=== PATIENT | male | born 1950 | race Caucasian/White ===

== ENCOUNTER → 2020-02-09 | Outpatient (CLI) | payer MEDICARE ==
[~2020-02-09] MED LIST: ASCO1500 PO; CHOL10003 PO; DIPH25CA61 PO; FLAX1OIL PO; GLUC1TAB55 PO; IMMUN GLOB INJ; ISAGENIX PO; TAMS-11 PO; TURM538C PO; [UNRECOGNIZED DRUG - OTHER] PO; [UNRECOGNIZED DRUG - OTHER] PO
[2020-02-09 14:14] LABS: MEAN CORPUSCULAR HEMOGLOBIN 36.4 pg (27.5-34.5); MEAN CORPUSCULAR HGB CONC 33.6 g/dL (33.2-36.2); MEAN CORPUSCULAR VOLUME 108.6 fL (81-97); MEAN PLATELET VOLUME 7.4 fL (7.4-10.4); PLATELET COUNT 122 x10^3/uL (130-400); RED BLOOD COUNT 3.95 x10^6/uL (4.38-5.82); RED CELL DISTRIBUTION WIDTH 14.8 % (9.4-14.8)
[2020-02-09 14:25] LABS: CALCIUM 8.8 mg/dL (8.5-10.1); CREATININE 0.85 mg/dL (0.7-1.3)
[2020-02-09 14:38] LABS: ANION GAP 4 mmol/L (5-15); CHLORIDE 110 mmol/L (98-107)
[2020-02-09 14:50] LABS: BASOPHILS % (AUTO) 0 % (0-1); EOSINOPHILS # (AUTO) 0.01 x10^3/uL (0-0.4); EOSINOPHILS % (AUTO) 0 % (1-7); LYMPHOCYTES # (AUTO) 2.21 x10^3/uL (1-3.4); LYMPHOCYTES % (AUTO) 67 % (22-44); MD SCAN; MONOCYTES # (AUTO) 0.26 x10^3/uL (0.2-0.8); MONOCYTES % (AUTO) 8 % (2-9); NEUTROPHILS # (AUTO) 0.83 x10^3/uL (1.8-6.8); NEUTROPHILS % (AUTO) 25 % (42-75)
== END | disposition home or self-care (01) ==
LOC: STAR 12:54
PROVIDERS: ATTEND Orthopaedic Surgery
DX: Z01.818 Encounter for other preprocedural examination (principal); M17.12 Unilateral primary osteoarthritis, left knee
CPT/HCPCS: 36415; 80048; 85025; 87081; 93005

== ENCOUNTER 2020-02-20 08:00 | Outpatient (CLI) | payer MEDICARE ==
[2020-02-24] MEDS ORDERED: MIDAZOLAM 1 MG/ML, 2ML ONE (09:41)
[2020-02-24] MEDS ORDERED: KETOROLAC 60 MG/2 ML ONE (09:56)
[2020-02-24] MEDS ORDERED: VANCOMYCIN 1,000 MG ONE ×2 (09:57→10:16)
[2020-02-24] MEDS ORDERED: ROPIvacaine/PF 0.2%, 20 ML ONE (09:57)
[2020-02-24] MEDS ORDERED: TRANEXAMIC ACID 100 MG/ML, 10ML ONE (09:57)
[2020-02-24] MEDS ORDERED: EPINEPHRINE 1 MG/ML, 1ML ONE (09:57)
[2020-02-24] MEDS ORDERED: SODIUM CHLORIDE 0.9% 0 ML ONE (09:57)
[2020-02-24] MEDS ORDERED: FENTANYL PF 250 MCG/5ML ONE (10:58)
[2020-02-24] MEDS ORDERED: FENTANYL PF 100 MCG/2ML ONE (12:17)
[2020-02-24] MEDS ORDERED: HYDROmorphone 2 MG/ML, 1ML ONE (13:08)
[2020-02-24] MEDS ORDERED: LABETALOL 5MG/ML, 20ML ONE (13:15)
[2020-02-24] MEDS ORDERED: MEPERIDINE/PF 25MG/ML,1ML ONE (13:23)
== END 2020-02-20 23:59 | disposition home or self-care (01) ==
LOC: OUT 08:00 → EDSTATUS 02-24 10:00
PROVIDERS: ATTEND Orthopaedic Surgery
DX: Z11.59 Encounter for screening for other viral diseases (principal)
CPT/HCPCS: 36415; 87635; J0171; J1885; J2250; J2795; J3010; J3370

== ENCOUNTER 2020-02-24 08:05 | Observation (INO) | payer MEDICARE ==
[~2020-02-24] VITALS: Ht 182.9 cm; Wt 110.0 kg
[2020-02-24] MEDS ORDERED: LACTATED RINGERS 1,000 ML IV SCH (08:57)
[2020-02-24 09:00] VITALS: BP 152/77
[2020-02-24] MEDS ORDERED: CHLORHEXIDINE 15 ML UDC MM ONE (09:00)
[2020-02-24] MEDS ORDERED: CHLORHEXIDINE 15 ML UDC ONE (09:06)
[2020-02-24] MEDS ORDERED: ONDANSETRON 2MG/ML, 2ML ONE (10:22)
[2020-02-24] MEDS ORDERED: CEFAZOLIN 1,000 MG ONE (10:22)
[2020-02-24] MEDS ORDERED: DEXAMETHASONE 4 MG/ML, 1ML ONE (10:22)
[2020-02-24] MEDS ORDERED: ROCURONIUM 10 MG/ML,10ML ONE (10:22)
[2020-02-24] MEDS ORDERED: SUCCINYLCHOLINE 20 MG/ML, 10ML ONE (10:22)
[2020-02-24] MEDS ORDERED: PROPOFOL 10 MG/ML, 20ML ONE (10:22)
[2020-02-24] MEDS ORDERED: ONDANSETRON 2MG/ML, 2ML IVPush PRN ×2 (11:30→12:30)
[2020-02-24] MEDS ORDERED: PROMETHAZINE 25 MG/ML, 1ML IV PRN (11:30)
[2020-02-24] MEDS ORDERED: DIAZEPAM 5 MG/ML, 2ML IV PRN ×2 (11:30)
[2020-02-24] MEDS ORDERED: METOCLOPRAMIDE 5 MG/ML, 2ML IV PRN (11:30)
[2020-02-24] MEDS ORDERED: ALBUTEROL SULFATE 2.5 MG/3 ML NPPB PRN (11:30)
[2020-02-24] MEDS ORDERED: KETOROLAC 30 MG/1 ML IV PRN (11:30)
[2020-02-24] MEDS ORDERED: OXYcodone 5 MG/5 ML ORAL.SOL UDC PO PRN (11:30)
[2020-02-24] MEDS ORDERED: hydrALAzine 20 MG/ML, 1ML IV PRN (11:30)
[2020-02-24] MEDS ORDERED: MEPERIDINE/PF 25MG/0.5ML IVPush PRN (11:30)
[2020-02-24] MEDS: D5%-0.45% NACL 1,000 ML IV SCH ×2 (12:12→14:51)
[2020-02-24] MEDS: FENTANYL PF 100 MCG/2ML IV PRN ×5 (12:18→13:04)
[2020-02-24] MEDS ORDERED: ALUMINUM/MAG/SIMETHICONE 30 ML UDC PO PRN (12:30)
[2020-02-24] MEDS: KETOROLAC 30 MG/1 ML IV SCH ×2 (12:30→21:18)
[2020-02-24] MEDS ORDERED: ZOLPIDEM 5MG TABLET PO PRN (12:30)
[2020-02-24] MEDS: ACETAMINOPHEN 500 MG TABLET PO SCH ×2 (12:30→21:18)
[2020-02-24] MEDS ORDERED: ONDANSETRON 4 MG TABLET PO PRN (12:30)
[2020-02-24] MEDS ORDERED: MORPHINE SULFATE 4 MG/ML, 1ML IVPush PRN (12:30)
[2020-02-24] MEDS ORDERED: BISACODYL 10 MG SUPP PR PRN (12:30)
[2020-02-24] MEDS ORDERED: PROMETHAZINE 25 MG/ML, 1ML IM PRN (12:30)
[2020-02-24] MEDS ORDERED: CEFAZOLIN PMX 1GM/50ML 50 ML IVPB SCH (12:30)
[2020-02-24] MEDS ORDERED: OXYcodone IR 5MG TABLET PO PRN (12:30)
[2020-02-24] MEDS ORDERED: MAGNESIUM HYDROXIDE 8%, 30ML UDC PO PRN (12:30)
[2020-02-24] MEDS ORDERED: OXYcodone 5 MG/5 ML ORAL.SOL UDC ONE (12:37)
[2020-02-24] MEDS ORDERED: TRANEXAMIC ACID 1,000 MG in SODIUM CHLORIDE 0.9% 100 ML IVPB ONE (12:41)
[2020-02-24] MEDS ORDERED: FENTANYL PF 100 MCG/2ML ONE (12:42)
[2020-02-24] MEDS: HYDROmorphone 1 MG/ML, 1ML INJ IV PRN ×3 (13:10→13:41)
[2020-02-24] MEDS: LABETALOL 5MG/ML, 20ML IV PRN ×2 (13:20→13:55)
[2020-02-24] MEDS ORDERED: TRANEXAMIC ACID 100 MG/ML, 10ML ONE (14:37)
[2020-02-24] MEDS ORDERED: SODIUM CHLORIDE 0.9% 50 ML ONE (14:37)
[2020-02-24] MEDS ORDERED: EPINEPHRINE 1 MG/ML, 1ML ONE (14:37)
[2020-02-24] MEDS ORDERED: ROPIvacaine/PF 0.2%, 20 ML ONE (14:37)
[2020-02-24] MEDS ORDERED: KETOROLAC 60 MG/2 ML ONE (14:37)
[2020-02-24] MEDS ORDERED: VANCOMYCIN 1,000 MG ONE (14:37)
[2020-02-24] MEDS: CEFAZOLIN PMX 1GM/50ML 50 ML IVPB SCH (18:07)
[2020-02-24 19:14] VITALS: BP 126/73
[2020-02-24] MEDS: DOCUSATE 100 MG CAPSULE PO SCH (21:17)
[2020-02-25 00:44] VITALS: BP 148/68
[2020-02-25] MEDS: D5%-0.45% NACL 1,000 ML IV SCH (01:06)
[2020-02-25] MEDS: OXYcodone IR 5MG TABLET PO PRN ×4 (01:41→12:09)
[2020-02-25] MEDS: CEFAZOLIN PMX 1GM/50ML 50 ML IVPB SCH (02:21)
[2020-02-25 03:54] VITALS: BP 118/66
[2020-02-25] MEDS: ACETAMINOPHEN 500 MG TABLET PO SCH ×2 (05:18→12:10)
[2020-02-25] MEDS: KETOROLAC 30 MG/1 ML IV SCH (05:18)
[2020-02-25] MEDS ORDERED: ISAGENIX PO SCH (06:00)
[2020-02-25 08:00] VITALS: BP 135/73
[2020-02-25 08:08] VITALS: BP 145/68
[2020-02-25] MEDS: DOCUSATE 100 MG CAPSULE PO SCH (08:11)
[2020-02-25] MEDS ORDERED: TAMSULOSIN 0.4 MG CAP.ER.24H PO SCH ×2 (09:00)
[2020-02-25] MEDS ORDERED: ASCORBIC ACID 500 MG TABLET PO SCH (09:00)
[2020-02-25] MEDS ORDERED: DIPHENHYDRAMINE 25 MG CAPSULE PO SCH ×2 (09:00)
[2020-02-25] MEDS ORDERED: [UNRECOGNIZED DRUG - REMARK] PO SCH (09:00)
[2020-02-25] MEDS ORDERED: CHOLECALCIFEROL 5,000u TAB PO SCH ×2 (09:00)
[2020-02-25] MEDS ORDERED: TURMERIC PO SCH (09:00)
[2020-02-25] MEDS ORDERED: MULTIVITAMINS/MINERALS TABLET PO SCH (09:00)
[2020-02-25] MEDS ORDERED: OSTEO BI FLEX PO SCH (09:00)
[2020-02-25] MEDS ORDERED: [UNRECOGNIZED DRUG - OTHER] PO SCH (09:00)
[2020-02-25] MEDS ORDERED: FLAXSEED OIL PO SCH (09:00)
[2020-02-25 12:55] VITALS: BP 148/62
[2020-02-25] MEDS ORDERED: ASPIRIN 81 MG TABLET EC PO SCH (18:00)
== END 2020-02-25 14:27 | disposition home or self-care (01) ==
LOC: OUT 08:05 → 4NE 14:25 → OUT 21:31 → 4NE 21:35
PROVIDERS: ADMIT Orthopaedic Surgery; ATTEND Orthopaedic Surgery
DX: M17.12 Unilateral primary osteoarthritis, left knee (principal); Z68.31 Body mass index [BMI] 31.0-31.9, adult; Z79.899 Other long term (current) drug therapy; Z85.6 Personal history of leukemia; Z85.828 Personal history of other malignant neoplasm of skin
CPT/HCPCS: 20680; 27447; 36415; 73560; 85014; 85018; 96365; 96366; 96375; 96376; 97162; C1713; C1776; G0378; J0171; J0330; J0690; J1100; J1170; J1885; J2175; J2250; J2405; J2704; J2795; J3010; J3370; J7120; 87635